=== PATIENT | male | born 1930 | race Caucasian/White ===

== ENCOUNTER 2017-05-02 12:56 | Inpatient (IN) | payer MEDICARE, OTHER ==
--- NOTE | ~2017-05-02 | DS ---
Discharge Summary [id number] [place]. [address] NAME: JACKY DAMON : 30 STATUS : DIS IN PAT#: [id number] AGE: 86 ADM/REG DATE : 05/02/17 MR#: [id number] REPORT SERV DATE: 05/09/17 DICTATED BY: VENUS WATT DATE: 05/09/17 REPORT STATUS : Draft TRANSCRIBED BY: MODL DATE: 05/09/17 ADMISSION DATE: 05/02/2017 DISCHARGE DATE: 05/07/2017 DISCHARGE/ SUMMARY DATE OF : 05/07/2017. DISCHARGE DIAGNOSES: 1. Pulseless electrical activity arrest. 2. Atrial fibrillation with rapid ventricular response, present on arrival. 3. Enterococcus urinary tract infection. 4. Demand ischemia. 5. Xzeat-ql-sghqshc systolic heart failure with depressed ejection fraction. 6. Gmcbd-ks-hldracy anemia with transfusion on admission. 7. History of kidney stones. 8. Acute kidney injury. 9. Left leg wounds. 10.Chronic debility. 11.Hypertension. 12.Chronic left bundle-branch block. 13.Benign prostatic hypertrophy. 14.Prior history of cardioversions for atrial fibrillation. 15.Hyperlipidemia. 16.Chronic tremors. 17.Osteoarthritis. 18.Osteoporosis. 19.Rheumatoid arthritis. 20.History of deep vein thrombosis, on chronic anticoagulation with Coumadin. CONSULTATIONS: Cardiology, Dr. Robledo and Dr. Mcgregor. Echocardiogram with depressed ejection fraction. HOSPITAL COURSE: Please see H and P for complete details. HISTORY OF PRESENT ILLNESS: Briefly, Mr. Damno was a very pleasant 86-year-old male with complex and extensive comorbid history with cardiac AFib, systolic and diastolic heart failure, gmlxr-rs-nrwhyzy anemia, CKD, chronic debility with decreased exercise tolerance, who presented with AFib with RVR acutely with prior history of cardioversions and additionally history of enterococcal UTI. The patient was initially rate controlled with Cardizem. Repeat echocardiogram was also performed due to systolic heart failure and acute exacerbation. Given IV Lasix. The patient had in years past had an EF in the 20s, had improved up to the 50s, but on this admission, had come down to the 20s. The patient was on prior anticoagulation with Coumadin , but was anemic on arrival with a WBC of 3.1, H and H 7.8 and 23.2 requiring blood transfusions. The patient had a troponin Discharge Summary [address] [place]. [address] NAME: JACKY DAMON : 30 STATUS : DIS IN PAT#: [id number] AGE: 86 ADM/REG DATE : 05/02/17 MR#: [id number] REPORT SERV DATE: 05/09/17 DICTATED BY: VENUS WATT DATE: 05/09/17 REPORT STATUS : Draft TRANSCRIBED BY: MODL DATE: 05/09/17 of 1.6 and 2.0, clear demand ischemia per Cardiology. The patient had clinical improvement and feeling with overall energy after blood transfusion. The patient was monitored and had rate improvement and changed over to amiodarone due to the patient's low ejection fraction and was off Cardizem greater than 24 hours. The patient's antibiotics were tapered to enterococcal species with amoxicillin. The patient did tolerate multiple days of diuresis, but did have creatinine elevations. Diuresis was held further and gentle IV fluids of 300 mL were given over 70 mL an hour. The patient did have history of sundowning on the day of the patient's demise. Earlier that day, he had expressed how well he had felt to this card writer hand and to and has resolved to try to keep getting better; however, as the day progressed, the patient, although was not hypoxic, continued to feel slightly more tired, then became more confused at night. Unfortunately, the patient had a traumatic rhythm drop of heart rate maintained in 90s, suddenly dropped to 30s, and went to essential PEA arrest with no ability for recovery of pulse. ACS protocol was initiated on the floor, but unsuccessful. Family was at bedside during full event. DICTATED BY: MD TWIN Duncan/LELA Venus Watt MD / [id number] CC: MD Kevin Duncan M.D.
--- NOTE | ~2017-05-02 | HP ---
History And Physical [address] [facility] [place]. [address] NAME: JACKY HOLLINS : 30 STATUS : ADM IN PAT#: [id number] AGE: 86 ADM/REG DATE : 05/02/17 MR#: [id number] REPORT SERV DATE: 05/02/17 DICTATED BY: ADAM SY DATE: 05/02/17 REPORT STATUS : Draft TRANSCRIBED BY: MODL DATE: 05/02/17 DATE OF ADMISSION: 05/02/2017 CHIEF COMPLAINT: Weakness. HISTORY OF PRESENT ILLNESS: Obtained from the patient as well as the patient's family present at bedside and caregiver and including emergency room documents. Also, prior medical records available to us were thoroughly reviewed. According to the information available, the patient is a pleasant 86-year-old white man with a complicated past medical history including longstanding rheumatoid arthritis, on chronic immunosuppressive therapy including increased dose of prednisone, history of paroxysmal atrial fibrillation, history of reported CHF, chronic kidney disease, chronic tremors, who presented to the emergency room because of weakness. The patient's family noticed that for the last two days the patient is weaker than usual with complaints of being very cold, freezing, and no documented temperature recorded. No increased shortness of breath, some coughing nonproductive, and noticed increased palpitations and heart rate. The patient was in his usual state of health until two days ago and at baseline, he is quite limited, being able to get out of bed to his wheelchair, get a few steps, at the most, get from the wheelchair to the bathroom, most of time being bedbound. No reports of fever or chills. No reports of dysuria, but his has noticed decreased urinary output. The patient has chronic lower extremity edema and chronic ulceration on the left leg. Apparently being seen by Home Health and attending to and actually looking better as per family. No increased redness or purulent drainage noticed from the wounds. The patient had some changes in his rheumatoid arthritis medication about two months ago with increased prednisone to 10 mg p.o. daily and increasing his methotrexate weekly to 10 tablets daily (in total 25 mg daily). The patient had a history of nonischemic cardiomyopathy with an ejection fraction previously reported at 20%, with last 2D echo available in 08/2016 showed improved ejection fraction of 55%. Apparently last being seen by Cardiology in 12/2016. In the emergency room, the patient was investigated, was noticed to have rapid atrial fibrillation with a heart rate around 120, marginally hypoxemic with an oxygen saturation of 90% in room air upon arrival. Further testing revealed possible urinary tract infection, significant anemia from his previous baseline, as well as elevated troponin I of 1.86. Therefore, the patient was started on Cardizem drip in the emergency room with presently heart rate around 90 on the Cardizem drip, and the hospitalist was requested for further management and evaluation. PAST MEDICAL HISTORY: As above. Significant for hypertension, chronic left bundle-branch block, significant for reported nonischemic cardiomyopathy with an ejection fraction of 20% in 2013 up to 55% in 08/2016, the last available 2D echo. The patient followed up by Dr. Mcgregor of Cardiology with [facility]. The patient had several DC cardioversions due to his atrial fibrillation, apparently last in 2012. The patient has a history of prior BPH, treated with TURP, history of kidney stones, he has been followed by Dr. Douglas of Urology. History of rheumatoid arthritis, longstanding, followed by Dr. Aldana, his banking assistant. History of hyperlipidemia and dyslipidemia. History of chronic tremors, followed by Dr. Cui of Neurology. History of osteoarthritis, osteoporosis, deconditioning, and rheumatoid arthritis as mentioned above. 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 History And Physical [address] [address] NAME: JACKY HOLLINS : 30 STATUS : ADM IN [facility]#: [id number] AGE: 86 ADM/REG DATE : 05/02/17 MR#: [id number] REPORT SERV DATE: 05/02/17 DICTATED BY: ADAM SY DATE: 05/02/17 REPORT STATUS : Draft TRANSCRIBED BY: MODL DATE: 05/02/17 PAST SURGICAL HISTORY: Significant for bilateral total knee replacements by Dr. Waldron, history of oral surgery and implant in 2007, history of prostate surgery with laser/TURP, bilateral cataract surgery with intraocular lens implants, several laser surgeries in the eyes, history of several cardioversions and cardiac catheterization. SOCIAL HISTORY: The patient is , retired, and lives with family. Denies tobacco abuse. Denies alcohol abuse. Denies illicit recreational drug abuse. FAMILY HISTORY: Significant for hypertension (overall, noncontributory at this age and condition). ALLERGIES: TO MORPHINE, CODEINE, AND CEFAZOLIN. HOME MEDICATIONS: According to the list provided, the patient is supposed to take Tylenol every eight hours two caplets in total, 1300 mg p.o. t.i.d. as scheduled for pain, calcium Caltrate with vitamin D 600 mg p.o. b.i.d., Sinemet 25/100 one p.o. t.i.d., Coreg 25 mg p.o. b.i.d., vitamin D 2000 units p.o. at bedtime, Proscar 5 mg p.o. q.a.m., folic acid 3 mg p.o. q.a.m., Lasix 40 mg p.o. before breakfast, losartan 50 mg p.o. at bedtime, methotrexate now takes 25 mg p.o. every week on mornings, [place]-3 fatty acid fish oil 1200 mg p.o. at bedtime, Prilosec 20 mg p.o. q.a.m., MiraLAX one packet p.o. daily p.r.n. constipation, prednisone 10 mg p.o. daily, Mysoline 150 mg p.o. b.i.d., Detrol LA 4 mg p.o. at bedtime, and sulfadiazine one topically daily p.r.n. for leg sores, Coumadin 4 mg p.o. daily or as directed. REVIEW OF SYSTEMS: As per H and P, otherwise, negative in all review of systems. Please note that the comprehensive review of system was obtained and pertinent positives are included in the H and P. PHYSICAL EXAMINATION: GENERAL: Pleasant, cooperant, but pale, frail, ill-appearing (?Chronically ill appearing). VITAL SIGNS: Upon arrival in the emergency room, blood pressure 114/77, pulse 124, respiratory rate 16, temperature 98.4, oxygen saturation 90% in room air. HEENT: With bilateral cataracts. Extraocular movements intact. Throat, mild erythema. No exudate. No signs of tenderness. Atraumatic. NECK: Supple. No JVD. No bruits. No thyromegaly. No lymph nodes. LUNGS: Bilateral air entry with bibasilar rales. No wheezing. HEART: Positive S1, S2. Irregularly irregular. Tachycardic with a positive mitral regurgitation murmur at the apex. Positive aortic sclerosis murmur. ABDOMEN: Positive bowel sounds. Soft, obese, nontender. No guarding. No hepatosplenomegaly. EXTREMITIES: Decreased range of motion and osteoarthritic changes. No clubbing. No cyanosis. +2 pitting edema up to the knees bilaterally with chronic stasis dermatitis changes bilateral. Left external calf with small wounds and skin breakdown, oozing serous content with no purulence or fluctuance noticed. Minimal erythema around those skin breakdowns. +1 pulses. No calf tenderness. History And Physical [address] [address] NAME: JACKY HOLLINS : 30 STATUS : ADM IN [facility]#: [id number] AGE: 86 ADM/REG DATE : 05/02/17 MR#: [id number] REPORT SERV DATE: 05/02/17 DICTATED BY: ADAM SY DATE: 05/02/17 REPORT STATUS : Draft TRANSCRIBED BY: LELA DATE: 05/02/17 NEUROLOGIC: Alert and oriented x3. Grossly nonfocal. Likely at baseline with generalized weakness and mild ataxia. No tremors. Cranial nerves 2 through 12 grossly intact. Motor strength 4 to 5 out of 5 symmetrical, bilateral. Deep tendon reflexes 2/2 symmetrical, bilateral. BACK: With decreased range of motion. No focal localized tenderness. No CVA tenderness. SKIN: No bruises, no rashes, no lacerations (besides the above-mentioned changes on the left and right lower extremity). SIGNIFICANT LABORATORY DATA: Chest x-ray (personal reading) showed increased vascular congestion. No acute infiltrate. EKG (personal reading) showed atrial fibrillation with a ventricular rate at 118, left bundle-branch block which is chronic. No significant change from prior EKG. BNP 1025, which is higher than his baseline. Sodium 142, potassium 4.7, chloride 109, bicarb 30, BUN 31, creatinine 1.59, glucose 111. Calcium 8.8, magnesium 2.4. Troponin I 1.86. White cell count 3.1, hemoglobin 7.8, hematocrit 23.2 with an MCV of 112.1, platelet count 189. INR 2.6. Urinalysis was hazy, showed moderate LE, negative nitrite, white cells 112, and occasional bacteria. ASSESSMENT AND PLAN AND PROBLEM LIST: The patient is a pleasant 86-year-old man with multiple medical problems, with very poor baseline functional status, presented to the emergency room with increased weakness and found to have rapid atrial fibrillation, elevated troponin I, slight acute kidney injury, possible urinary tract infection, and significant worsening anemia. IMPRESSION: 1. Cardiovascular:. a. Atrial fibrillation (chronic), present on admission, with rapid ventricular response. b. Elevated troponin I (demand ischemia versus non-STEMI). c. Congestive heart failure with ngpmt-do-eeeozil systolic dysfunction and diastolic dysfunction. d. Class 4 known ischemic cardiomyopathy, previously reported 20% ejection fraction. Last 2D echo available in our system showed in 08/2016 an EF of 55%, significantly improved. e. Chronic left bundle-branch block. f. Essential hypertension. g. For all the above, the patient has been admitted on the hospitalist service under cardiac telemetry setting with Cardiology consultation. The patient is already on anticoagulation with Coumadin. We are going to use Cardizem IV drip for rate control. We are going to continue Coreg/beta asim. Use IV hydralazine p.r.n. for increased blood pressure. Repeat a 2D echo. Continue diuretic of Lasix IV 40 q.12 hours. Monitor CK and troponin I. 2. Renal and problem:. a. Acute kidney injury, likely worsening from baseline chronic kidney disease, stage 2 to stage 3. b. Urinary tract infection (possible) versus pyuria. c. For all the above, we are going to obtain a urine culture. We are going to monitor BUN and creatinine and renal function. We are going to check PVR due to History And Physical [address] [address] NAME: JACKY HOLLINS : 30 STATUS : ADM IN PAT#: [id number] AGE: 86 ADM/REG DATE : 05/02/17 MR#: [id number] REPORT SERV DATE: 05/02/17 DICTATED BY: ADAM SY DATE: 05/02/17 REPORT STATUS : Draft TRANSCRIBED BY: MODRaad DATE: 05/02/17 his previous reported benign prostatic hypertrophy and voiding problems to make sure the patient does not need a Bustamante catheter for now. We are going to obtain a urine culture and use Levaquin IV due to his reported allergies to cephalosporins. Further antibiotic to be guided by cultures. 3. Hematologic problem:. a. Anemia, acute on chronic, with likely acute blood loss component and very symptomatic now. We are going to provide 2 units of PRBC blood transfusion (?If the patient does not have a degree of methotrexate toxicity due to his neutropenia, anemia, and progressive macrocytosis). b. Neutropenia. Monitor for now. c. Macrocytosis. Check vitamin B12 as well as folate. Continue folic acid supplementation and add multivitamin. d. Chronic anticoagulation on Coumadin. Continue and follow up with Pharmacology consult. Target INR between 2 and 3. e. History of recurrent deep venous thromboses, bilateral lower extremities. 4. Neurologic problem:. a. Chronic tremors. b. Generalized weakness which is multifactorial at this moment. Continue his Sinemet and Mysoline. 5. Chronic immunosuppression and chronic prednisone usage. Continue present prednisone dose and hold methotrexate for now. We will have to check with his banking assistant regarding possible toxicity or change in dosage. 6. Acute hypoxemia and respiratory failure, 90% on room air. We are going to provide oxygen supplementation and continue as above, diuretic therapy, p.r.n. DuoNeb for shortness of breath. 7. Hyperlipidemia, mixed type. Continue fish oil and low-cholesterol diet. 8. Left leg wound, chronic stasis dermatitis. Provide wound nurse consult. Elevate lower extremity. 9. Rheumatoid arthritis and osteoarthritis, osteoporosis, deconditioning, and debilitation. As above. Continue prednisone for now. Hold methotrexate. Provide adequate pain control. Consider Physical Therapy evaluation. PROGNOSIS: Moderate for this admission, rather poor in medium and long-term due to the patient's multiple comorbidities and poor functional status. Please note, the patient is a full code at this moment as discussed with the patient and family at bedside. RF/MODL Adam Sy M.D. / [id number] CC: Timothy Romero MD History And Physical [address] [address] NAME: JACKY HOLLINS : 30 STATUS : ADM IN PAT#: [id number] AGE: 86 ADM/REG DATE : 05/02/17 MR#: [id number] REPORT SERV DATE: 05/02/17 DICTATED BY: ADAM SY DATE: 05/02/17 REPORT STATUS : Draft TRANSCRIBED BY: LELA DATE: 05/02/17 Collette Preciado M.D. Adele Ackell, M.D. Charles Sienknecht, M.D.
--- NOTE | ~2017-05-02 | CN ---
Consultation Report [address] [place]. [address] NAME: JACKY DAMON : 30 STATUS : ADM IN PAT#: [id number] AGE: 86 ADM/REG DATE : 05/02/17 MR#: [id number] REPORT SERV DATE: 05/02/17 DICTATED BY: RICHIE ENRIQUE DATE: 05/02/17 REPORT STATUS : Draft TRANSCRIBED BY: LELA DATE: 05/02/17 CARDIOLOGY CONSULTATION DATE OF CONSULTATION: [facility] PHYSICIAN: Blayne Mcgregor M.D. REASON FOR CONSULTATION: Atrial fibrillation. HISTORY OF PRESENT ILLNESS: Mr. Damon is an 86-year-old man with a history of multiple medical problems including paroxysmal atrial fibrillation and a variable cardiomyopathy. He is chronically ill at home with chronic edema and mostly wheelchair bound with Parkinson disease. Over the past several days, he has not felt well. He has had a lot of generalized weakness and felt cold. He also had some mild palpitations, and due to these symptoms, came to the emergency room. He was found to be in atrial fibrillation, found to have possible bladder infection, found to have a severe anemia with a decreased white blood cell count. He has been admitted and placed on antibiotics and Cardizem. He is feeling a little bit better. He denies chest pain or any anginal-type symptoms other than just weakness. He has had no nausea or vomiting. No diarrhea. REVIEW OF SYSTEMS: The review of systems is as per the history of present illness. Ten other systems are negative. PAST MEDICAL HISTORY: 1. Rheumatoid arthritis. 2. Paroxysmal atrial fibrillation. 3. Chronic kidney disease. 4. History variable cardiomyopathy. 5. Parkinson disease with history of tremor. 6. COPD. 7. Left bundle-branch block. 8. Hypercholesterolemia. 9. Chronic edema. 10.Chronic kidney disease. FAMILY HISTORY: Positive for hypertension. SOCIAL HISTORY: No tobacco or alcohol. The patient is and still lives with his . ALLERGIES: MORPHINE, CODEINE, AND CEFAZOLIN. HOME MEDICATIONS: Acetaminophen, calcium, carbidopa/levodopa, carvedilol 25 mg p.o. b.i.d., Consultation Report [address] [place]. [address] NAME: JACKY DAMON : 30 STATUS : ADM IN PAT#: [id number] AGE: 86 ADM/REG DATE : 05/02/17 MR#: [id number] REPORT SERV DATE: 05/02/17 DICTATED BY: RICHIE ENRIQUE DATE: 05/02/17 REPORT STATUS : Draft TRANSCRIBED BY: LELA DATE: 05/02/17 vitamin D, Proscar, folic acid, Lasix 40 daily, losartan 50 q.h.s., methotrexate, omega-3 fatty acids, Prilosec, MiraLAX, prednisone 10 q.a.m., Mysoline 50 b.i.d., Detrol LA 4 q.h.s., Silver cream to legs, and Coumadin for q.h.s. PHYSICAL EXAMINATION: VITAL SIGNS: Heart rate 92 and blood pressure 132/60. GENERAL: The patient is a pleasant elderly white male, in no apparent distress. HEENT: Conjunctivae are anicteric, no xanthelasma, lips without cyanosis. NECK: Supple. Jugular venous pressure is elevated. LUNGS: Decreased breath sounds at the bases with few crackles. CARDIOVASCULAR: Irregular. Somewhat distant S1 and S2. ABDOMEN: Soft and nontender. EXTREMITIES: Chronic lower extremity edema. NEURO: Grossly nonfocal. DATA: 1. EKG shows atrial fibrillation, heart rate at this time 118, left bundle-branch block which is chronic. 2. Hematocrit 23.2 and white blood cell count is 3.1. 3. Creatinine is 1.5. 4. Troponin 1.86. 5. INR is 2.6. IMPRESSION: 1. Weakness, multifactorial. 2. Atrial fibrillation, ow with rapid ventricular response. 3. Elevated troponin with no anginal symptoms. 4. Possible urinary tract infection. 5. Severe anemia. 6. Parkinson disease with tremor. 7. Chronic obstructive pulmonary disease. 8. Chronic left bundle-branch block. 9. Chronic edema. 10.Chronic immunosuppression. 11.Acute on chronic systolic congestive heart failure. RECOMMENDATIONS: Mr. Damon presents with weakness and feeling of cold with multiple issues. I believe, he has some decompensated heart failure as well as atrial fibrillation. I think the bigger issue is severe anemia as well as some chronic kidney disease. I agree with diuresis and transfusion. I agree with rate control with Cardizem over the short term. We will order some serial troponins and follow him clinically at this time. I think by treating his anemia and getting his heart rate under control, we can address any question of ischemia. We will repeat an echo to make sure there has been no significant change in his left ventricular function and see how he responds to antibiotics. Over the next day or two if he does clinically improve, a decision could be made to consider cardioversion, this has Consultation Report [facility] [address] [place]. [address] NAME: JACKY DAMON : 30 STATUS : ADM IN PAT#: [id number] AGE: 86 ADM/REG DATE : 05/02/17 MR#: [id number] REPORT SERV DATE: 05/02/17 DICTATED BY: RICHIE ENRIQUE DATE: 05/02/17 REPORT STATUS : Draft TRANSCRIBED BY: MODL DATE: 05/02/17 been done in the past or the other option would be just to consider rate control in this chronically anticoagulated patient. He may need an evaluation for anemia with chronic anticoagulation as well. Thank you for this consultation. Please contact me if you have any further questions. I will notify Dr. Mcgregor of his admission. WO/MODL Richie Enrique M.D., Ph.D, F.A.C.C. / [id number] CC: MD Kevin Duncan M.D.
[~2017-05-02 12:56] MED LIST: ACET500CAP PO; ATRONASAL3 NAS; C1 PO; C2 PO; C5 PO; CALTRA600D PO; CARD120 PO; CARDCD120 PO; CENTRUM TAB1 TAB PO; CORDARONE PO; COREG25 PO; COUMADIN4 MG PO; COUMADIN6 MG PO; COZ50 PO; DETROL2 PO; DETROLLA2 PO; ENDOCET1 TAB PO; FERREX 150150 MG PO; FISH OIL1200 MG PO; FISH-EPA1000 MG PO; FOLIC PO; FOSAMAX70 MG PO; GLUCOSAMINE COMPLEX PO; JANTOVEN5 MG PO; KLOR-CON 1010 MEQ PO; KLOR-CON M1010 MEQ PO; L20 PO; L40 PO; LOP25 PO; MIRALAXPKT PO; MTX2.5 PO; MUCINEX600 MG PO; NASAL SPRAY; OS500+D PO; P1 PO; P10 PO; P5 PO; PACERONE200 MG PO; PLAQ200B PO; PREPARATION RE; PRILO PO; PRILOSEC OTC20 MG PO; PRILOSEC10 MG PO; PRIM50B PO; PROMEGA PO; SPIRIVA INH; T PO; ULTRAM50 PO; VITAMIN D1000 UNI1 PO; VITAMIN D31000 UNIT PO
[2017-05-02 13:10] LABS: BASOPHILS 0.6 %; BASOPHILS ABSOLUTE 0.02 10/3/uL (0.0-0.16); EOSINOPHILS 1.9 %; EOSINOPHILS ABSOLUTE 0.06 10/3/uL (0.0-0.53); IMMATURE GRANULOCYTES 0.6 %; IMMATURE GRANULOCYTES ABSOLUTE 0.02 10/3/uL (0.0-0.11); LYMPHOCYTES 36.4 %; LYMPHOCYTES ABSOLUTE 1.14 10/3/uL (0.67-4.30); MEAN CORPUS HGB CONC 33.6 g/dL (32.0-36.0); MEAN CORPUSCULAR HEMOGLOB 37.7 pg (26.0-34.0); MEAN PLATELET VOLUME 10.2 fL (9.2-13.0); MONOCYTES 10.5 %; MONOCYTES ABSOLUTE 0.33 10/3/uL (0.21-1.20); NEUTROPHILS ABSOLUTE 1.56 10/3/uL (2.02-8.40); PLATELET COUNT 189 10/3/uL (150-400)
[2017-05-02 13:11] LABS: HEMATOCRIT 23.2 % (40.0-51.0); HEMOGLOBIN 7.8 g/dL (13.6-17.8); MANUAL DIFF NO %; MEAN CORPUSCULAR VOLUME 112.1 fL (80-100); RED CELL COUNT 2.07 10/6/uL (4.7-6.1); WHITE BLOOD CELLS 3.1 10/3/uL (4.5-10.5)
[2017-05-02 13:17] LABS: INTERNATIONAL NORMAL RATI 2.6 UNITS (-)
[2017-05-02 13:18] LABS: ASCORBIC ACID (UR NOT ORDER) NEG (NEG); BILIRUBIN, URINE NEGATIVE (NEG); ER URINALYSIS TAT 0 Hrs 09 Mins; KETONE, URINE NEGATIVE (NEG); LEUKOCYTE ESTERASE(NOT OR MOD (NEG); NITRITE (URINE) NEG (NEG); WBC (NOT ORDERED) (RFLEX) 112 (0-5)
[2017-05-02 13:18] LABS: PARTIAL THROMBO TIME 59.5 SEC (22.5-37.2)
[2017-05-02 13:19] LABS: PROTIME (NOT ORD) 27.7 SEC (12.0-14.5)
[2017-05-02 13:26] LABS: CALCIUM, SERUM 8.8 MG/DL (8.5-10.4); CHLORIDE, SERUM 109 MMOL/L (96-112); CO2 (CARBON DIOXIDE) 30 MMOL/L (24-34); CREATININE 1.59 MG/DL (0.70-1.30); GFR AFRICAN AMERICAN 45 ML/MIN (>=60); GFR NON AFRICAN AMERICAN 39 ML/MIN (>=60); POTASSIUM, SERUM 4.7 MMOL/L (3.5-5.3); SODIUM, SERUM 142 MMOL/L (135-148)
[2017-05-02 13:28] LABS: BUN (BLOOD UREA NITROGEN) 31 MG/DL (6-23); GLUCOSE, SERUM 111 MG/DL (60-99)
[2017-05-02 13:29] LABS: CHEST PAIN PROFILE TAT 0 Hrs 24 Mins; OVALOCYTES 1+ (3-10/OIF) (0-2/OIF); PLATELET ESTIMATE ADQ (ADEQUATE); TEARDROP SHAPED RBCS OCC (0-2/OIF); TROPONIN I 1.86 NG/ML (<0.05)
[2017-05-02] MEDS ORDERED: SIN25 PO (15:58)
[2017-05-02] MEDS ORDERED: FOLIC PO (15:58)
[2017-05-02] MEDS ORDERED: MTX2.5 PO (15:58)
[2017-05-02] MEDS ORDERED: PRIM50B PO (15:59)
[2017-05-02] MEDS ORDERED: L40 PO (15:59)
[2017-05-02] MEDS ORDERED: COREG25 PO (15:59)
[2017-05-02] MEDS ORDERED: COZ50 PO (16:00)
[2017-05-02] MEDS ORDERED: P10 PO (16:00)
[2017-05-02] MEDS ORDERED: COUMADIN4 MG PO (16:01)
[2017-05-02] MEDS ORDERED: DETROLLA4 PO (16:02)
[2017-05-02] MEDS ORDERED: PROSCAR5 PO (16:03)
[2017-05-02] MEDS ORDERED: 8 HOUR650 MG PO (16:03)
[2017-05-02] MEDS ORDERED: FISH OIL1200 MG PO (16:04)
[2017-05-02] MEDS ORDERED: CALTRA600D PO (16:04)
[2017-05-02] MEDS ORDERED: PRILOSEC OTC20 MG PO (16:04)
[2017-05-02] MEDS ORDERED: VITAMIN D1000 UNI1 PO (16:04)
[2017-05-02] MEDS ORDERED: MIRALAX POWDER1 PKT PO (16:05)
[2017-05-02] MEDS ORDERED: SILVER SULFADIAZINE TOP (16:07)
[2017-05-02 21:00] LABS: RETICULOCYTE COUNT 1.7 % (0.5-2.5)
[2017-05-02 21:49] LABS: ACETAMINOPHEN LEVEL (TYLENOL) 2.3 MCG/ML (10.0-20.0); CPK 54 U/L (0-200); DIRECT BILIRUBIN 0.2 MG/DL (0.0-0.4); FERRITIN 539 NG/ML (26-388); FREE T4 1.09 NG/DL (0.76-1.46); INDIRECT BILIRUBIN(NOT ORDER) 0.3 MG/DL (0.1-0.9); IRON BINDING CAPACITY 112 MCG/DL (250-450); IRON, SERUM 28 MCG/DL (35-150); PHOSPHORUS, SERUM 2.8 MG/DL (2.5-4.5); SGOT(AST) 26 U/L (5-40); SGPT(ALT) 28 U/L (5-65); TOTAL BILIRUBIN 0.5 MG/DL (0-1.2); TOTAL PROTEIN 6.1 G/DL (6.0-8.5)
[2017-05-02 21:50] LABS: ALBUMIN 2.5 G/DL (3.5-5.0); ALKALINE PHOSPHATASE 85 U/L (45-117); CK-MB 4.3 NG/ML; FOLATE > 100.0 NG/ML (>5.2)
[2017-05-03 00:12] LABS: PROCALCITONIN 0.17 ng/mL (<0.5)
[2017-05-03 05:30] LABS: ALBUMIN 2.2 G/DL (3.5-5.0); BUN (BLOOD UREA NITROGEN) 32 MG/DL (6-23); CALCIUM, SERUM 8.1 MG/DL (8.5-10.4); CHLORIDE, SERUM 111 MMOL/L (96-112); CO2 (CARBON DIOXIDE) 25 MMOL/L (24-34); CREATININE 1.58 MG/DL (0.70-1.30); GFR AFRICAN AMERICAN 45 ML/MIN (>=60); GFR NON AFRICAN AMERICAN 39 ML/MIN (>=60); GLUCOSE, SERUM 109 MG/DL (60-99); PHOSPHORUS, SERUM 3.1 MG/DL (2.5-4.5); SODIUM, SERUM 141 MMOL/L (135-148)
[2017-05-03 05:31] LABS: CK-MB 2.8 NG/ML; POTASSIUM, SERUM 4.8 MMOL/L (3.5-5.3)
[2017-05-03 05:32] LABS: CPK 110 U/L (0-200)
[2017-05-03 15:04] LABS: BASOPHILS 0.2 %; BASOPHILS ABSOLUTE 0.01 10/3/uL (0.0-0.16); EOSINOPHILS 0.7 %; EOSINOPHILS ABSOLUTE 0.04 10/3/uL (0.0-0.53); IMMATURE GRANULOCYTES 1.1 %; IMMATURE GRANULOCYTES ABSOLUTE 0.06 10/3/uL (0.0-0.11); LYMPHOCYTES 15.5 %; LYMPHOCYTES ABSOLUTE 0.83 10/3/uL (0.67-4.30); MEAN CORPUS HGB CONC 33.3 g/dL (32.0-36.0); MEAN CORPUSCULAR HEMOGLOB 34.9 pg (26.0-34.0); MONOCYTES 8.9 %; MONOCYTES ABSOLUTE 0.48 10/3/uL (0.21-1.20); NEUTROPHILS 73.6 %; NEUTROPHILS ABSOLUTE 3.95 10/3/uL (2.02-8.40); PLATELET COUNT 167 10/3/uL (150-400)
[2017-05-03 15:10] LABS: HEMATOCRIT 29.1 % (40.0-51.0); HEMOGLOBIN 9.7 g/dL (13.6-17.8); MANUAL DIFF NO %; MEAN CORPUSCULAR VOLUME 104.7 fL (80-100); RBC DISTRIBUTION WIDTH 22.2 % (12.0-16.0); RED CELL COUNT 2.78 10/6/uL (4.7-6.1); WHITE BLOOD CELLS 5.4 10/3/uL (4.5-10.5)
[2017-05-03 15:14] LABS: INTERNATIONAL NORMAL RATI 2.5 UNITS (-); PROTIME (NOT ORD) 26.8 SEC (12.0-14.5)
[2017-05-04 10:49] LABS: BASOPHILS 0.3 %; BASOPHILS ABSOLUTE 0.02 10/3/uL (0.0-0.16); EOSINOPHILS 2.8 %; EOSINOPHILS ABSOLUTE 0.21 10/3/uL (0.0-0.53); HEMATOCRIT 30.1 % (40.0-51.0); HEMOGLOBIN 9.9 g/dL (13.6-17.8); IMMATURE GRANULOCYTES 0.9 %; IMMATURE GRANULOCYTES ABSOLUTE 0.07 10/3/uL (0.0-0.11); LYMPHOCYTES 16.8 %; LYMPHOCYTES ABSOLUTE 1.25 10/3/uL (0.67-4.30); MEAN CORPUS HGB CONC 32.9 g/dL (32.0-36.0); MEAN CORPUSCULAR HEMOGLOB 34.7 pg (26.0-34.0); MEAN CORPUSCULAR VOLUME 105.6 fL (80-100); MEAN PLATELET VOLUME 10.2 fL (9.2-13.0); MONOCYTES 10.2 %; MONOCYTES ABSOLUTE 0.76 10/3/uL (0.21-1.20); NEUTROPHILS ABSOLUTE 5.11 10/3/uL (2.02-8.40); NUCLEATED RED BLOOD CELLS 0.7 /100WBC (0-0); PLATELET COUNT 157 10/3/uL (150-400); RBC DISTRIBUTION WIDTH 21.3 % (12.0-16.0); RED CELL COUNT 2.85 10/6/uL (4.7-6.1); WHITE BLOOD CELLS 7.4 10/3/uL (4.5-10.5)
[2017-05-04 10:50] LABS: MANUAL DIFF NO %
[2017-05-04 10:56] LABS: BUN (BLOOD UREA NITROGEN) 34 MG/DL (6-23); CALCIUM, SERUM 8.7 MG/DL (8.5-10.4); CHLORIDE, SERUM 106 MMOL/L (96-112); CO2 (CARBON DIOXIDE) 29 MMOL/L (24-34); CREATININE 1.72 MG/DL (0.70-1.30); GFR AFRICAN AMERICAN 41 ML/MIN (>=60); GFR NON AFRICAN AMERICAN 35 ML/MIN (>=60); SODIUM, SERUM 141 MMOL/L (135-148)
[2017-05-04 10:57] LABS: GLUCOSE, SERUM 140 MG/DL (60-99)
[2017-05-05 04:59] LABS: BASOPHILS 0.1 %; BASOPHILS ABSOLUTE 0.01 10/3/uL (0.0-0.16); EOSINOPHILS 4.4 %; EOSINOPHILS ABSOLUTE 0.34 10/3/uL (0.0-0.53); HEMATOCRIT 27.1 % (40.0-51.0); IMMATURE GRANULOCYTES 0.9 %; IMMATURE GRANULOCYTES ABSOLUTE 0.07 10/3/uL (0.0-0.11); LYMPHOCYTES 16.7 %; LYMPHOCYTES ABSOLUTE 1.28 10/3/uL (0.67-4.30); MEAN CORPUS HGB CONC 33.2 g/dL (32.0-36.0); MEAN CORPUSCULAR VOLUME 105.4 fL (80-100); MEAN PLATELET VOLUME 10.9 fL (9.2-13.0); MONOCYTES ABSOLUTE 1.15 10/3/uL (0.21-1.20); NEUTROPHILS 62.9 %; NEUTROPHILS ABSOLUTE 4.81 10/3/uL (2.02-8.40); PLATELET COUNT 186 10/3/uL (150-400); RBC DISTRIBUTION WIDTH 20.1 % (12.0-16.0); RED CELL COUNT 2.57 10/6/uL (4.7-6.1); WHITE BLOOD CELLS 7.7 10/3/uL (4.5-10.5)
[2017-05-05 05:08] LABS: MANUAL DIFF NO %
[2017-05-05 05:16] LABS: A/G RATIO 0.7 (0.7-1.9); ALBUMIN 2.2 G/DL (3.5-5.0); ALKALINE PHOSPHATASE 86 U/L (45-117); BUN (BLOOD UREA NITROGEN) 35 MG/DL (6-23); CALCIUM, SERUM 8.6 MG/DL (8.5-10.4); CHLORIDE, SERUM 100 MMOL/L (96-112); CO2 (CARBON DIOXIDE) 31 MMOL/L (24-34); GFR AFRICAN AMERICAN 41 ML/MIN (>=60); GFR NON AFRICAN AMERICAN 36 ML/MIN (>=60); GLOBULIN 3.3 G/DL (2.5-4.1); POTASSIUM, SERUM 3.8 MMOL/L (3.5-5.3); SGOT(AST) 63 U/L (5-40); SGPT(ALT) 12 U/L (5-65); SODIUM, SERUM 136 MMOL/L (135-148); TOTAL BILIRUBIN 0.5 MG/DL (0-1.2); TOTAL PROTEIN 5.5 G/DL (6.0-8.5)
[2017-05-05 05:17] LABS: GLUCOSE, SERUM 213 MG/DL (60-99); TROPONIN I 0.74 NG/ML (<0.05)
[2017-05-06 05:58] LABS: BUN (BLOOD UREA NITROGEN) 47 MG/DL (6-23); CALCIUM, SERUM 8.6 MG/DL (8.5-10.4); CHLORIDE, SERUM 103 MMOL/L (96-112); CO2 (CARBON DIOXIDE) 29 MMOL/L (24-34); CREATININE 2.28 MG/DL (0.70-1.30); GFR AFRICAN AMERICAN 29 ML/MIN (>=60); GFR NON AFRICAN AMERICAN 25 ML/MIN (>=60); GLUCOSE, SERUM 110 MG/DL (60-99); POTASSIUM, SERUM 4.3 MMOL/L (3.5-5.3); SODIUM, SERUM 139 MMOL/L (135-148)
== END 2017-05-07 05:18 | disposition expired | DRG 291 ==
LOC: ER 12:56 → 2SO 15:50
PROVIDERS: Emergency Medicine; Internal Medicine; Student in an Organized Health Care Education/Training Program
PROC: 02H633Z Insertion of Infusion Device into Right Atrium, Percutaneous Approach (ICD-10-PCS; principal; 2017-05-02)
PROC: 30233N1 Transfusion of Nonautologous Red Blood Cells into Peripheral Vein, Percutaneous Approach (ICD-10-PCS; 2017-05-03)
PROC: 02HV33Z Insertion of Infusion Device into Superior Vena Cava, Percutaneous Approach (ICD-10-PCS; 2017-05-04)
DX: I13.0 Hypertensive heart and chronic kidney disease with heart failure and stage 1 through stage 4 chronic kidney disease, or unspecified chronic kidney disease (principal); I50.43 Acute on chronic combined systolic (congestive) and diastolic (congestive) heart failure; J96.01 Acute respiratory failure with hypoxia; I46.9 Cardiac arrest, cause unspecified; N17.9 Acute kidney failure, unspecified; I24.8 Other forms of acute ischemic heart disease; N18.3 Chronic kidney disease, stage 3 (moderate); D68.32 Hemorrhagic disorder due to extrinsic circulating anticoagulants; I25.5 Ischemic cardiomyopathy; N39.0 Urinary tract infection, site not specified; I48.0 Paroxysmal atrial fibrillation; G20 Parkinson's disease; D70.9 Neutropenia, unspecified; D64.9 Anemia, unspecified; I44.7 Left bundle-branch block, unspecified; E78.2 Mixed hyperlipidemia; M85.80 Other specified disorders of bone density and structure, unspecified site; I34.0 Nonrheumatic mitral (valve) insufficiency; N40.0 Benign prostatic hyperplasia without lower urinary tract symptoms; M19.90 Unspecified osteoarthritis, unspecified site; M06.9 Rheumatoid arthritis, unspecified; I87.2 Venous insufficiency (chronic) (peripheral); M81.0 Age-related osteoporosis without current pathological fracture; T45.515A Adverse effect of anticoagulants, initial encounter; S80.922A Unspecified superficial injury of left lower leg, initial encounter; B95.2 Enterococcus as the cause of diseases classified elsewhere; R00.1 Bradycardia, unspecified; Z96.653 Presence of artificial knee joint, bilateral; Z79.52 Long term (current) use of systemic steroids; Z99.3 Dependence on wheelchair; Z86.718 Personal history of other venous thrombosis and embolism; Z79.01 Long term (current) use of anticoagulants; Z88.5 Allergy status to narcotic agent; Z88.8 Allergy status to other drugs, medicaments and biological substances; Z82.49 Family history of ischemic heart disease and other diseases of the circulatory system
CPT/HCPCS: 31500; 36415; 36569; 36597; 71010; 80048; 80053; 80069; 80076; 81001; 82550; 82553; 82607; 82728; 82746; 82962; 83540; 83550; 83735; 83880; 84100; 84145; 84439; 84443; 84481; 84484; 85025; 85045; 85610; 85730; 86850; 86900; 86901; 86920; 87040; 87077; 87086; 87186; 92950; 93005; 94640; 96365; 96366; 96523; 97162-GP; 99285; A9270-GY; C1751; C1894; C8929; G0463; G0480; G8978-CM-GP; G8979-CL-GP; J0282; J1170; J1956; P9016; Q9957